=== PATIENT | female | born 1990 | race Caucasian/White ===

== ENCOUNTER 2016-06-29 19:50 | Emergency (ER) | payer MEDICAID ==
[~2016-06-29] VITALS: Ht 170.2 cm; Wt 87.8 kg
[~2016-06-29 19:50] MED LIST: ALBU8.5H3 INH; ESCI20TA30 PO; PROP10TA10 PO
--- OUTSIDE RECORDS SUMMARY | 2016-06-29 19:54 | XMS REPORT ---
Author Author Cece Jaylan [facility] Address [address], [place] [address] Care Team Providers Care Die Barber Name Role Phone Jaylan Zhao Unavailable [phone] PROBLEMS Type Condition ICD9-CM Code SHX17-EG Code Onset Dates Condition Status SNOMED Code Problem Esophageal reflux 530.81 Active 090809781 Problem Peptic ulcer, unspecified site, unspecified as acute or chronic, without mention of hemorrhage, perforation, or obstruction 533.90 Active 20536797 Problem Obesity, unspecified 278.00 Active 652137897 Assessment Encounter for dental examination and cleaning without abnormal findings Z01.20 Feb, Active 757810518 Problem Migraine headaches 346.90 Active 70039686 Problem Adjustment disorder with anxiety 309.24 Active 39204166 Problem Eczema 691.8 Active 50768388 Problem Mild intermittent asthma without complication J45.20 Active 862847834 Problem Adjustment disorder with anxiety F43.22 Active 19273042 Problem Bipolar 1 disorder, depressed, mild F31.31 Active 84997602 Problem Allergic rhinitis 477.9 Active 91545320 Problem Generalized anxiety disorder F41.1 Active 88230964 Problem Bipolar disorder, current episode depressed, moderate F31.32 Active 984602622 ALLERGIES Unknown Allergies SOCIAL HISTORY No smoking Hx information available PLAN OF CARE VITAL SIGNS MEDICATIONS Medication Instructions Dosage Frequency Start Date End Date Duration Status Zyrtec Allergy 10 MG Orally Once a day 1 tablet 24h Active Benadryl Allergy 25 MG Orally every 6 hrs 1 tablet as needed 6h Active Methocarbamol 750 MG Orally every 4 hrs 1 tablet 4h Active Propranolol HCl 10 MG Orally up to twice a day as needed for Anxiety 0.5 to 1 tablet 30 days Active Budesonide 0.5 MG/2ML Inhalation 3 Times a day 1 ml 8h 10 Jan, 2016 3 days Active Albuterol Sulfate HFA 108 (90 Base) MCG/ACT Inhalation every 4 hrs 2 puffs as needed 4h 30 days Active Afrin Allergy Active Hydrocodone-Acetaminophen 5-325 MG Orally every 4-6 hours p.r.n. 1 tablet as needed Feb, 4 days Active Amoxicillin 500 MG Orally every 8 hrs for 1 capsule 6 day(s) Active Lamictal 150 MG Orally Once a day 2 tablet at bedtime 24h 30 days Active Lexapro 20 MG Orally Once a day 1 tablet 24h Mar, 30 days Active RESULTS No Results PROCEDURES Procedure Date Ordered Related Diagnosis Body Site LTD ORAL EVALUATION - PROBLEM FOCUS Mar 04, 2016 INTRAORL-PERIAPICAL 1 FILM 59964 Mar 04, 2016 RODRIGO KIM DENTAL PAIN-MINOR PROC Mar 04, 2016 IMMUNIZATIONS No Known Immunizations
--- OUTSIDE RECORDS SUMMARY | 2016-06-29 19:55 | XMS REPORT | Continuity of Care Document ---
Author Author [facility] Organization [facility] Address Unknown Phone Unavailable Support Name Relationship Address Phone CHRISTI LOPEZ MD Caregiver [address] [place] [address] Unavailable ESEQUIEL BRISENO DO Caregiver [address] [place] [address] Unavailable AIDACLEOPATRA WYATTA Next Of Kin [address] [place], [place] [id number] Insurance Providers Guarantor Michelle Hayes Address [address] [place] [address] Email [email or web address] Payer [facility] Plan Policy Number [id number] Subscriber's Name Michelle Hayes Relationship 18 Self Effective Date 16 Expiration Date 16 Advance Directives Directive Response Recorded Date/Time Advanced Directives Type None 05/02/16 5:30pm Chief Complaint and Reason for Visit Chief Complaint GI Bleed Reason for Visit [id number] Problems Active Problems Medical Problem Onset Date Status Abdominal pain Unknown Acute Abdominal pain Unknown Acute Acute bronchitis Unknown Acute Contusion of back Unknown Acute GERD (gastroesophageal reflux disease) Unknown Acute Gastroenteritis Unknown Acute Lumbar strain Unknown Acute Pain, dental Unknown Acute Past Problems Medical Problem Onset Date Constipation Unknown Left sided abdominal pain of unknown cause Unknown Lumbar back pain Unknown Lumbar contusion Unknown Rectal bleeding Unknown Yeast infection Unknown Medications Current Home Medications Medication Dose Units Route Directions Days Qty Instructions Start Date Albuterol Sulfate (Albuterol Sulfate Hfa) 8.5 Gm Hfa.aer.ad 1 Puff Inhalation As Needed 06/04/12 Escitalopram Oxalate 20 Mg Tablet 20 Mg Oral Bedtime 05/02/16 Propranolol Hcl 10 Mg Tablet 10 Mg Oral Bedtime 05/02/16 Past Home Medications Medication Directions Ordered Status Cefprozil (Cefzil) 250 Mg Tablet, 250 Mg Oral Twice A Day 03/23/08 Discontinued Social History Social History Problem Response Recorded Date/Time Onset Date Status Chewing Tobacco Status No 08/12/2013 12:34am Not Applicable Not Applicable Hx Substance Use No 05/02/2016 5:40pm Not Applicable Not Applicable Hx Alcohol Use Y OCCASIONAL 05/02/2016 5:40pm Not Applicable Not Applicable Has the pt used tobacco in the last 12 months No 04/20/2014 6:15am Not Applicable Not Applicable Tobacco Usage smoke 08/18/2013 11:06am Not Applicable Not Applicable Query Response Start Date Stop Date Smoking Status Unknown if ever smoked Hospital Discharge Instructions No hospital discharge instructions. Plan of Care Discharge Date 05/02/16 7:07pm Disposition 01 DISCHARGED HOME, SELF-CARE Condition at Discharge Stable Instructions/Education Provided Rectal Bleeding (ED) Prescriptions See Medication Section Referrals ESEQUIEL BRISENO DO Address: [address] [place] [address] [place] [phone] Additional Instructions/Education I do want you to monitor your symptoms. If you should have any increased bleeding in amount or frequency then return to ER. Otherwise follow up next week with Dr Briseno. If the bleeding persists you may need a colonoscopy to determine the source of the bleeding. Care Plan and Goals Physician Care Plan Problem:Rectal Bleeding Goal: Follow up with primary care provider Instructions: Take medications and follow care plan as discussed/written Functional Status No functional status results. Allergies, Adverse Reactions, Alerts Allergen Type Severity Reaction Status Last Updated Penicillin Allergy Unknown NUMBNESS Active 03/16/16 Immunizations Query Response on File Recorded Date/Time Hx Influenza Vaccination No 04/19/14 11:32am Hx Pneumococcal Vaccination No 04/19/14 11:32am Hx Influenza Vaccination No 04/19/14 11:32am Hx Tetanus Diptheria Y 200602/19/14 1:25am Influenza Vaccine Hx NONE 05/02/16 5:40pm Vital Signs Acute Vital Signs Vital Response Date/Time Temperature (Fahrenheit) 98.5 deg F (96.8 - 99.1) 05/02/2016 7:07pm Temperature (Calculated Celsius) 36.15073 degrees C (36.0 - 37.3) 05/02/2016 7:07pm Pulse Rate (adult) 85 bpm (60 - 100) 05/02/2016 7:07pm Respiratory Rate 14 breaths/min (10 - 20) 05/02/2016 7:07pm O2 Sat by Pulse Oximetry 98 % (90 - 100) 05/02/2016 7:07pm Blood Pressure 105/70 mm Hg 05/02/2016 7:07pm Height (Feet) 5 feet 05/02/2016 5:35pm Height (Inches) 7.00 inches 05/02/2016 5:35pm Weight (Kilograms) 90.300 kg 05/02/2016 5:35pm Body Mass Index (BMI) 31.0 05/02/2016 5:35pm Results Laboratory Results Test Name Result Units Flags Reference Collection Date/Time Result Date/ Time Comments Total Bilirubin 0.30 MG/DL 0.20-1.30 03/16/2016 9:15pm 03/16/2016 9: 30pm Alkaline Phosphatase 73 U/L 38-126 03/16/2016 9:15pm 03/16/2016 9:30pm Total Protein 7.3 G/DL 6.3-8.2 03/16/2016 9:15pm 03/16/2016 9:30pm Albumin 4.0 G/DL 3.5-5.0 03/16/2016 9:15pm 03/16/2016 9:30pm Globulin 3.3 G/DL 2.4-3.6 03/16/2016 9:15pm 03/16/2016 9:30pm Albumin/Globulin Ratio 1.2 RATIO 1.1-2.2 03/16/2016 9:15pm 03/16/2016 9 :30pm Aspartate Amino Transf (AST/SGOT) 23 U/L 14-36 03/16/2016 9:15pm 2015 9:30pm Alanine Aminotransferase (ALT/SGPT) 27 U/L 9-52 03/16/2016 9:15pm 03/16 9:30pm Urine Collection Type STRAIGHT CATH 03/16/2016 9:42pm 03/16/2016 9: 46pm Urine Color YELLOW YELLOW 03/16/2016 9:42pm 03/16/2016 9:46pm Urine Turbidity CLEAR CLEAR 03/16/2016 9:42pm 03/16/2016 9:46pm Urine Specific [place] 1.010 L 1.015-1.025 03/16/2016 9:42pm 2015 9:46pm Urine pH 6.0 5.0-8.0 03/16/2016 9:42pm 03/16/2016 9:46pm Urine Leukocyte Esterase NEGATIVE NEGATIVE 03/16/2016 9:42pm 2015 9:46pm Urine Nitrite NEGATIVE NEGATIVE 03/16/2016 9:42pm 03/16/2016 9:46pm Urine Protein NEGATIVE NEGATIVE 03/16/2016 9:42pm 03/16/2016 9:46pm Urine Glucose (UA) NEGATIVE NEGATIVE 03/16/2016 9:42pm 03/16/2016 9: 46pm Urine Ketones NEGATIVE NEGATIVE 03/16/2016 9:42pm 03/16/2016 9:46pm Urine Urobilinogen 0.2 EU/DL NORMAL 03/16/2016 9:42pm 03/16/2016 9: 46pm Urine Bilirubin NEGATIVE NEGATIVE 03/16/2016 9:42pm 03/16/2016 9: 46pm Urine Blood NEGATIVE NEGATIVE 03/16/2016 9:42pm 03/16/2016 9:46pm Urinalysis Comment MICROSCOPIC NOT IND. 03/16/2016 9:42pm 2015 9:46pm White Blood Count 11.1 T/MM3 H 4.5-11.0 05/02/2016 6:10pm 05/02/2016 6: 19pm Red Blood Count 3.80 M/MM3 L 4.00-5.20 05/02/2016 6:10pm 05/02/2016 6: 19pm Hemoglobin 10.6 GM/DL L 12-16 05/02/2016 6:10pm 05/02/2016 6:19pm Hematocrit 33.6 % L 36-46 05/02/2016 6:10pm 05/02/2016 6:19pm Mean Corpuscular Volume 88.4 UM3 80-100 05/02/2016 6:1005/02/2016 6: 19pm Mean Corpuscular Hemoglobin 27.9 UUG 26-34 05/02/2016 6:102016 6:19pm Mean Corpuscular Hemoglobin Concent 31.5 GM/DL 31-37 05/02/2016 6:1005/02/2016 6:19pm RDW Standard Deviation 49.7 FL 36.9-50.2 05/02/2016 6:10pm 05/02/2016 6 :19pm Platelet Count 269 T/MM3 130-400 05/02/2016 6:10pm 05/02/2016 6:19pm Mean Platelet Volume 11.3 UM3 9.4-12.4 05/02/2016 6:1005/02/2016 6: 19pm Neutrophils (%) (Auto) 55.7 % 33-66 05/02/2016 6:1005/02/2016 6: 19pm Lymphocytes (%) (Auto) 35.7 % 23-45 05/02/2016 6:1005/02/2016 6: 19pm Monocytes (%) (Auto) 5.6 % 0-9.0 05/02/2016 6:1005/02/2016 6:19pm Eosinophils (%) (Auto) 2.4 % 0-4 05/02/2016 6:1005/02/2016 6:19pm Basophils (%) (Auto) 0.3 % 0-2 05/02/2016 6:1005/02/2016 6:19pm Immature Granulocyte % (Auto) 0.3 % 0.0-0.5 05/02/2016 6:10pm 2016 6:19pm Absolute Neutrophils (auto) 6.2 T/MM3 1.8-7.7 05/02/2016 6:102016 6:19pm Absolute Lymphocytes (auto) 4.0 T/MM3 1-4.8 05/02/2016 6:10pm 2016 6:19pm Absolute Monocytes (auto) 0.6 T/MM3 0-0.8 05/02/2016 6:10pm 05/02/2016 6:19pm Absolute Eosinophils (auto) 0.3 T/MM3 0-0.5 05/02/2016 6:102016 6:19pm Absolute Basophils (auto) 0.0 T/MM3 0-0.2 05/02/2016 6:1005/02/2016 6:19pm Absolute Immature Granulocyte (auto 0.03 T/MM3 0.00-0.03 05/02/2016 6: 1005/02/2016 6:19pm Icterus Index < 2 0-7 05/02/2016 6:05/02/2016 6:28pm Chemistry Specimen Hemolysis < 15 0-25 05/02/2016 6:1005/02/2016 6 :28pm 0-25: Specimen Exhibited No Hemolysis. Turbidity < 20 0-20 05/02/2016 6:1005/02/2016 6:28pm Sodium Level 140 MEQ/L 134-144 05/02/2016 6:10pm 05/02/2016 6:28pm Potassium Level 4.0 MEQ/L 3.6-5 05/02/2016 6:10pm 05/02/2016 6:28pm Chloride Level 106 MEQ/L 98-107 05/02/2016 6:10pm 05/02/2016 6:28pm Carbon Dioxide Level 25 MEQ/L 22-30 05/02/2016 6:10pm 05/02/2016 6: 28pm Anion Gap 9 MEQ/L 5-15 05/02/2016 6:10pm 05/02/2016 6:28pm Blood Urea Nitrogen 9.0 MG/DL 7-17 05/02/2016 6:10pm 05/02/2016 6:28pm Creatinine 0.7 MG/DL 0.7-1.2 05/02/2016 6:10pm 05/02/2016 6:28pm BUN/Creatinine Ratio 13 RATIO 6-05/02/2016 6:10pm 05/02/2016 6:28pm Glomerular Filtration Rate Calc 101 05/02/2016 6:10pm 05/02/2016 6: 28pm Glucose Level 88 MG/DL 65-110 05/02/2016 6:10pm 05/02/2016 6:28pm Calculated Osmolality 267 MOSM/KG 261-280 05/02/2016 6:10pm 05/02/2016 6:28pm Calcium Level 9.8 MG/DL 8.4-10.2 05/02/2016 6:10pm 05/02/2016 6:28pm Procedures Procedure Status Date Provider(s) Routine venipuncture Completed 03/16/16 Comprehen metabolic panel Completed 03/16/16 Urinalysis auto w/o scope Completed 03/16/16 Complete cbc w/auto diff wbc Completed 03/16/16 Ther/proph/diag inj sc/im Completed 03/16/16 Emergency dept visit Completed 03/16/16 232541"INJECTION, KETOROLAC TROMETHAMINE, PER 15 MG" Completed 03/16/16 Encounters Encounter Location Arrival/Admit Date Discharge/Depart Date Attending Provider Departed Emergency Room [facility] 05/02/16 5:29pm 05/02/16 7: 07pm CHRISTI LOPEZ MD Departed Emergency Room [facility] 03/16/16 7:58pm 03/16/16 11: 29pm MEJIA GAY MD Recent Diagnosis
--- OUTSIDE RECORDS SUMMARY | 2016-06-29 19:56 | XMS REPORT | Referral Summary ---
Author Author [facility], [facility] Organization [facility] Address Unknown Phone Unavailable Care Team Providers Care Code Enforcement Inspector Name Role Phone Edwin Holman Primary Care Physician [phone] Encounter VC Date(s): 04/22/16 - 04/22/16 [facility], [address] [place] [address]- Discharge Diagnosis: Nasopharyngitis Discharge Disposition: 01-Home or Self Care Attending Physician: Edwin Holman DO Admitting Physician: Edwin Holman DO Vital Signs Most recent to 1 oldest [Reference Range]: Temperature Tympanic 37.0 degC [36.6-38.1 degC] (04/22/16 9:20 AM) Peripheral Pulse 86 bpm Rate [60-100 bpm] (04/22/16 9:20 AM) Respiratory Rate 18 br/min [14-20 br/min] (04/22/16 9:20 AM) Blood Pressure 100/72 mmHg [90-140/60-90 mmHg] (04/22/16 9:20 AM) SpO2 98 % (04/22/16 9:20 AM) Problem List Condition Effective Dates Status Health Status Informant Allergic Active rhinitis(Confirmed) Hay fever(Confirmed) Active Anemia(Confirmed) Active Asthma(Confirmed) Active Obesity(Confirmed) Active patient Allergies, Adverse Reactions, Alerts Substance Reaction Severity Status penicillin excruciating pain Active Medications albuterol CFC free 90 mcg/inh inhalation aerosol 1 puffs, Inhalation, QID, as needed for wheezing, # 1 Each, 0 Refill(s), Pharmacy: [facility] #[id number] Start Date: 07/09/15 Status: Ordered indomethacin 50 mg oral capsule 50 mg 1 caps, Oral, BID, as needed for pain, # 60 caps, 0 Refill(s), Pharmacy: [facility] #[id number], 1 caps Oral BID,x30 days,PRN:as needed for pain Start Date: 09/04/15 Stop Date: 10/04/15 Status: Ordered lamoTRIgine 25 mg oral tablet 25 mg 1 tabs, Oral, BID, # 60 tabs, 0 Refill(s) Start Date: 07/09/15 Status: Ordered Lyrica 100 mg oral capsule 100 mg 1 caps, Oral, BID, # 60 caps, 0 Refill(s) Start Date: 09/26/15 Stop Date: 10/26/15 Status: Ordered prochlorperazine 10 mg oral tablet 10 mg 1 tabs, Oral, QID, as needed for nausea/vomiting, 0 Refill(s) Start Date: 03/18/16 Status: Ordered propranolol 10 mg oral tablet 10 mg 1 tabs, Oral, Daily, # 180 tabs, 0 Refill(s) Start Date: 07/09/15 Status: Ordered Reglan 10 mg oral tablet 10 mg 1 tabs, Oral, q6hr, as needed for nausea/vomiting, 0 Refill(s) Start Date: 12/25/15 Status: Ordered Robaxin-750 oral tablet 750 mg 1 tabs, Oral, QID, as needed for pain, # 30 tabs, 0 Refill(s) Start Date: 12/12/15 Status: Ordered traMADol 50 mg oral tablet 1-2 tabs, Oral, q6hr, as needed for pain, 0 Refill(s) Start Date: 03/18/16 Status: Ordered Results No data available for this section Immunizations No data available for this section Procedures Procedure Date Related Diagnosis Body Site delivery Cholecystectomy Hernia repair Removal of wart1 Tubal ligation 1genital Social History Social History Type Response Smoking Status Current every day smoker; Type: Cigarettes; Tobacco use per day: Less than Pack Assessment and Plan Extracted from: Title: Office Visit Note Author: Edwin Holman DO Date: 04/22/16 Assessment/Plan 1.Nasopharyngitis 1. History and clinical presentation consistent with viral upper respiratory tract infection. 2. Continue with conservative and supportive measures. 3. Adequate hydration recommended. 4. Ibuprofen or Tylenol every 8 hours as needed for the sore throat and coughing. 5. Follow-up if worsening presentation 6. Recommended getting the flu vaccination. Ordered: Office Visit Level 3 Est [id number]
--- OUTSIDE RECORDS SUMMARY | 2016-06-29 19:57 | XMS REPORT | Continuity of Care Document ---
Author Author [facility] Organization [facility] Address Unknown Phone Unavailable Support Name Relationship Address Phone JUDY FERGUSON MD Caregiver [address] [place] [id number] MANSOOR MYERS APRN Caregiver [facility] Unknown [phone] MIKA JACKSON MD Caregiver [facility] [address] , KAREN Mayo [place], [place] [phone] DANIAL HAYES Next Of Kin [address] [place], [place] [id number] Insurance Providers Payer Name Policy Number Subscriber Name Relationship [facility] Preferred [id number] Danial Hayes 01 Spouse Advance Directives Directive Response Recorded Date/Time Ordered Resuscitation Status Full Code 04/19/14 11:59am Resuscitation Documents on File No 04/19/14 11:45am Problems Medical Problems Problem Onset Date Status Abdominal pain Unknown Active Abdominal pain Unknown Active Pain, dental Unknown Active Medications Medication Dose Route Sig Days/Qty Instructions Order Date Discontinued Date Status Cefprozil 250 Mg PO TWICE A DAY 03/23/08 01/07/09 Discontinued Albuterol Sulfate 1 INH NEEDED 06/04/12 Active Pantoprazole Sodium 1 Tab PO DAILY 04/19/14 Active Oxycodone HCl/Acetaminophen 1-2 Tab PO EVERY 4-6 HOURS PRN PAIN 35 Qty 04/20/14 Active Social History Social History Problem Response Recorded Date/Time Chewing Tobacco Status No 08/12/2013 12:34am Hx Substance Use No 04/19/2014 11:32am Hx Alcohol Use No 04/19/2014 11:32am Has the pt used tobacco in the last 12 months No 04/20/2014 6:15am Tobacco Usage smoke 08/18/2013 11:06am Query Response Start Date Stop Date Smoking Status Unknown if ever smoked Hospital Discharge Instructions No hospital discharge instructions. Plan of Care No plan of care. Functional Status Query Response Date Recorded Physical Hygiene Self February 19, 2014 1:25am Physical Hygiene Self February 19, 2014 1:25am Allergies, Adverse Reactions, Alerts Allergen Type Severity Reaction Status Last Updated Penicillin Allergy Unknown NUMBNESS Active 02/19/14 Hydrocodone Adverse Reaction Intermediate URINARY RETENTION Active Immunizations Name Given Type Hx Influenza Vaccination No Historical Hx Pneumococcal Vaccination No Historical Hx Influenza Vaccination No Historical Hx Tetanus Diptheria Y 2007 Historical Vital Signs Acute Vital Signs Vital Response Date/Time Temperature (Fahrenheit) 96.6 deg F (96.8 - 99.1) Temperature (Calculated Celsius) 35.22296 degrees C (36.0 - 37.3) Temperature Source Oral Pulse Rate (adult) 61 bpm (60 - 100) Respiratory Rate 18 breaths/min (10 - 20) O2 Sat by Pulse Oximetry 98 % (90 - 100) Oxygen Delivery Method Room Air Blood Pressure 99/64 mm Hg Blood Pressure Source Automatic Cuff Height 5 ft 6 in Weight 211 lb Body Mass Index 34.0 kg/m^2 Results Test Source Date Result Interp. Ref. Range Comments Alanine Aminotransferase (ALT/SGPT) August 12, 2013 1:05am 23 U/L N 9-52 Albumin August 12, 2013 1:05am 4.1 G/DL N 3.5-5.0 Albumin/Globulin Ratio August 12, 2013 1:05am 1.2 RATIO N 1.1-2.2 Alkaline Phosphatase August 12, 2013 1:05am 103 U/L N 38-126 Anion Gap August 12, 2013 1:05am 10 MEQ/L N 5-15 Aspartate Amino Transf (AST/SGOT) August 12, 2013 1:05am 17 U/L N 14-36 BUN/Creatinine Ratio August 12, 2013 1:05am 17 RATIO N 6-26 Basophils # (Auto) April 20, 2014 6:11am 0.0 T/MM3 N 0-0.2 Basophils (%) (Auto) April 20, 2014 6:11am 0.3 % N 0-2 Blood Urea Nitrogen August 12, 2013 1:05am 10.0 MG/DL N 7-17 Calcium Level August 12, 2013 1:05am 9.1 MG/DL N 8.4-10.2 Calculated Osmolality August 12, 2013 1:05am 268 MOSM/KG N 261-280 Carbon Dioxide Level August 12, 2013 1:05am 26 MEQ/L N 22-30 Chemistry Specimen Hemolysis August 12, 2013 1:05am < 15 0-25 0-25: No Hemolysis.26-70: Slight Hemolysis - can falsely elevate K and Urine Protein. 71-285: Moderate Hemolysis - can falsely elevate K, Troponin I, CA 19-9, PTH, CSF GLucose, and Urine Protein, and can falsely decrease Phenytoin. 286-999: Gross Hemolysis - can falsely elevate K, Troponin I, CA 19-9, PTH, CSF Glucose, and Urine Protine, and can falsely decrease Phenytoin. Recommend specimen recollection. Chloride Level August 12, 2013 1:05am 104 MEQ/L N 98-107 Creatinine August 12, 2013 1:05am 0.6 MG/DL L 0.7-1.2 Eosinophils # (Auto) April 20, 2014 6:11am 0.1 T/MM3 N 0-0.5 Eosinophils (%) (Auto) April 20, 2014 6:11am 1.0 % N 0-4 Globulin August 12, 2013 1:05am 3.5 G/DL N 2.4-3.6 Glomerular Filtration Rate Calc August 12, 2013 1:05am 124 - Glucose Level August 12, 2013 1:05am 90 MG/DL N 65-110 Hematocrit April 20, 2014 6:11am 37.2 % N 36-46 Hemoglobin April 20, 2014 6:11am 12.1 GM/DL N 12-16 Icterus Index August 12, 2013 1:05am < 2 0-7 Immature Granulocyte # (Auto) April 20, 2014 6:11am 0.00 T/MM3 N 0.00- 0.03 Immature Granulocyte % (Auto) April 20, 2014 6:11am 0.0 % N 0.0-0.5 Influenza Type A Antigen January 07, 2009 3:32pm Negative - Influenza Type B Antigen January 07, 2009 3:32pm Negative - Lab Scanned Report January 09, 2012 9:00pm LAB TEST FORM REQUEST [id number] - Lymphocytes # (Auto) April 20, 2014 6:11am 3.0 T/MM3 N 1-4.8 Lymphocytes (%) (Auto) April 20, 2014 6:11am 42.0 % N 23-45 Mean Corpuscular Hemoglobin April 20, 2014 6:11am 28.5 UUG N 26-34 Mean Corpuscular Hemoglobin Concent April 20, 2014 6:11am 32.5 GM/DL N 31-37 Mean Corpuscular Volume April 20, 2014 6:11am 87.7 UM3 N 80-100 Mean Platelet Volume April 20, 2014 6:11am 11.6 UM3 N 9.4-12.4 Monocytes # (Auto) April 20, 2014 6:11am 0.5 T/MM3 N 0-0.8 Monocytes (%) (Auto) April 20, 2014 6:11am 7.0 % N 0-9.0 Monoscreen March 23, 2008 8:05am Negative - Neutrophils # (Auto) April 20, 2014 6:11am 3.5 T/MM3 N 1.8-7.7 Neutrophils (%) (Auto) April 20, 2014 6:11am 49.7 % N 33-66 Platelet Count April 20, 2014 6:11am 190 T/MM3 N 130-400 Potassium Level August 12, 2013 1:05am 3.5 MEQ/L L 3.6-5 RDW Standard Deviation April 20, 2014 6:11am 44.3 FL N 36.9-50.2 Red Blood Count April 20, 2014 6:11am 4.24 M/MM3 N 4.00-5.20 Sodium Level August 12, 2013 1:05am 140 MEQ/L N 134-144 Total Bilirubin August 12, 2013 1:05am 0.70 MG/DL N 0.20-1.30 Total Protein August 12, 2013 1:05am 7.6 G/DL N 6.3-8.2 Turbidity August 12, 2013 1:05am < 20 0-20 Urinalysis Comment June 04, 2012 2:20pm Microscopic not ind. - Has specimen been collected/obtained? Y Urine Amorphous Urates December 27, 2007 11:47am Moderate - Urine Bacteria August 12, 2013 1:15am Trace H - Has specimen been collected/obtained? Y Urine Bilirubin August 12, 2013 1:15am Negative - Has specimen been collected/obtained? Y Urine Blood August 12, 2013 1:15am 3+ H - Has specimen been collected/ obtained? Y Urine Collection Type August 12, 2013 1:15am Cleancatch-midstream - Has specimen been collected/obtained? Y Urine Color August 12, 2013 1:15am Dk yellow - Has specimen been collected/obtained? Y Urine Culture Indicated June 04, 2012 2:20pm Cult reflexed &setup - Has specimen been collected/obtained? Y Urine Glucose (UA) August 12, 2013 1:15am Negative - Has specimen been collected/obtained? Y Urine Ketones August 12, 2013 1:15am Negative - Has specimen been collected/obtained? Y Urine Leukocyte Esterase August 12, 2013 1:15am Negative - Has specimen been collected/obtained? Y Urine Mucus December 27, 2007 11:47am Present - Urine Nitrite August 12, 2013 1:15am Negative - Has specimen been collected/obtained? Y Urine Test December 17, 2012 6:40am Negative - Has specimen been collected/obtained? Y Urine Protein August 12, 2013 1:15am Trace H - Has specimen been collected /obtained? Y Urine RBC August 12, 2013 1:15am Tntc /HPF H - Has specimen been collected /obtained? Y Urine Specific [place] August 12, 2013 1:15am >=1.030 H - Has specimen been collected/obtained? Y Urine Squamous Epithelial Cells June 04, 2012 2:20pm Few - Has specimen been collected/obtained? Y Urine Turbidity August 12, 2013 1:15am Moderate - Has specimen been collected/obtained? Y Urine Urobilinogen August 12, 2013 1:15am 0.2 EU/DL - Has specimen been collected/obtained? Y Urine WBC August 12, 2013 1:15am 3-5 /HPF - Has specimen been collected/ obtained? Y Urine WBC Clumps January 09, 2012 10:40am Not Performed - Urine Yeast January 10, 2008 9:44am 2+ - Urine pH August 12, 2013 1:15am 6.0 - Has specimen been collected/ obtained? Y White Blood Count April 20, 2014 6:11am 7.0 T/MM3 N 4.5-11.0 Wet Prep Vagina December 30, 2011 12:00pm Urine Culture Urine, Clean Catch Voided June 04, 2012 2:42pm Gram Positive Dayo Procedures Procedure Status Date Provider(s) THER/PROPH/DIAG INJ SC/IM completed 02/19/14 EMERGENCY DEPT VISIT completed 02/19/14 [id number]"INJECTION, HYDROMORPHONE, UP TO 4 MG" completed 02/19/14 Robot-assisted repair of ventral hernia completed 04/20/14 MIKA JACKSON MD Encounters Encounter Location Date/Time Departed Emergency Room [facility] 02/19/14 1:10am
--- OUTSIDE RECORDS SUMMARY | 2016-06-29 19:58 | XMS REPORT | Continuity of Care Document ---
Author Author [facility] Organization [facility] Address Unknown Phone Unavailable Allergies Active Description Code Type Severity Reaction Onset Reported/Identified Relationship to Patient Clinical Status Yes Penicillins Penicillins Drug Allergy Mild headache, stabbing pains, rash 11/10/2010 Yes No Allergy Information Drug Allergy N/A N/A 05/21/2013 Yes Penicillins Drug Allergy N/A excruciating pain 05/21/2013 Yes cephalexin cephalexin Drug Allergy Unknown ITCHING 12/25/2014 Medications Problems Date Dx Coded Attending Type Code Diagnosis Diagnosed By 09/21/2012 Bryan Mcmahan MD 493.90 ASTHMA, UNSPECIFIED 09/21/2012 Bryan Mcmahan MD 645.11 POST TERM PREG, DELIV W/WO MENTION OF ANTEPARTUM C 09/21/2012 Bryan Mcmahan MD 648.91 OTH CURR COND-DELIVERED 09/21/2012 Bryan Mcmahan MD 655.71 DECR MOVEMNT DEL W/W/O MENTION OF ANTEPARTUM 09/21/2012 Bryan Mcmahan MD 659.11 FAIL INDUCTION NOS-DELIV 09/21/2012 Bryan Mcmahan MD 674.32 OB SURG COMPL-DEL W P/P 09/21/2012 Bryan Mcmahan MD E849.7 ACCID IN RESIDENT INSTIT 09/21/2012 Bryan Mcmahan MD E878.8 ABN REACT-SURG PROC NEC 09/21/2012 Bryan Mcmahan MD V22.0 SUPERVIS NORMAL 1ST PREG 09/21/2012 Bryan Mcmahan MD V22.1 SUPERVIS OTH NORMAL PREG 09/21/2012 Bryan Mcmahan MD V27.0 DELIVER-SINGLE LIVEBORN 05/21/2013 Familia Bojorquez MD Final 278.00 OBESITY NOS 05/21/2013 Familia Bojorquez MD Final 478.19 NASAL SINUS DIS NEC 05/21/2013 Familia Bojorquez MD Final 493.90 ASTHMA NOS 05/21/2013 [place] ACEVEDO, Familia Solomon Final 553.9 HERNIA NOS 05/21/2013 [place] ACEVEDO, Familia Solomon Final 785.6 ENLARGEMENT LYMPH NODES 05/21/2013 Familia Bojorquez MD Final 789.03 RLQ ABDOMINAL PAIN 05/21/2013 [place] ACEVEDO, Familia Solomon Final 793.11 SOLITARY PULMON NODULE 05/21/2013 Familia Bojorquez MD Final 850.11 CONCUSSION W LOC <31 MIN 05/21/2013 [place] ACEVEDO, Familia Solomon 959.01 HEAD INJURY NOS 05/21/2013 Familia Bojorquez MD External E816.0 LOSS CONTROL MV-BEHAVIORAL SCIENCE CHAIR 05/21/2013 Familia Bojorquez MD External E849.[address]/HIGHWAY 05/21/2013 Familia Bojorquez MD Final V85.33 BMI 33.0-33.9 ADULT 12/25/2014 Bryan Mcmahan MD A Z34.83 ENCOUNTER FOR SUPRVSN OF NORMAL , THIRD TRIMESTER Procedures Code Description Performed By Performed On 73.1 SURG INDUCT LABOR NEC Bryan Mcmahan MD 09/21/2012 74.1 LOW CERVICAL Bryan Mcmahan MD 09/21/2012 [id number] OCCLUSION OF BILATERAL FALLOPIAN TUBES, OPEN APPRO Bryan Mcmahan MD 12/25/2014 [id number] EXTRACTION OF POC, LOW CERVICAL, OPEN APPROACH Bryan Mcmahan MD 12/25/2014 Results Test Result Range CBC - 09/21/12 06:05 MEAN CELL HGB 31.7 pg 27.0-33.0 MEAN CELL HGB CONCENTRATION 32.2 g/dL 32.0-37.0 MEAN CELL VOLUME 98.3 fl 80.0-100.0 RED BLOOD CELL 3.63 m/cumm 4.00-6.00 RED CELL DISTRIBUTION WIDTH 14.5 % 11.0- 15.6 WHITE BLOOD CELL 12.4 k/cumm 5.0-10.0 HEMOGLOBIN 11.5 gm/dL 12.0-16.0 HEMATOCRIT 35.7 % 37.0-47.0 PLATELET COUNT 198 k/cumm 150-400 CORD ARTERIAL BLOOD GAS - 09/21/12 10:10 ARTERIAL CORD BLD BASE EXCESS -1.9 meq/L -7.6-1.3 COMMENT ARTERIAL ARTERIAL CORD BICARBONATE 27.4 meq/L 16.0 -27.1 ARTERIAL CORD BLOOD PCO2 67 mm Hg 32-69 ARTERIAL CORD BLOOD PH 7.23 7.14-7.40 ARTERIAL CORD BLOOD PO2 12.9 mm Hg 8-33 ARTERIAL CORD BLOOD O2 SAT < 15 % 5-59 CORD VENOUS BLOOD GAS - 09/21/12 10:10 VENOUS CORD BLOOD BASE EXCESS -4.2 meq/L -5.8-0.7 COMMENT VENOUS VENOUS CORD BLOOD HCO3 21.1 meq/L 17.4- 25.4 VENOUS CORD BLOOD PCO2 40 mm Hg 28-57 VENOUS CORD BLOOD PH 7.35 7.23-7.46 VENOUS CORD BLOOD PO2 39 mm Hg 15-42 VENOUS CORD BLOOD O2 SAT 79 % 14-75 HEMOGLOBIN - 09/21/12 14:44 MEAN CELL VOLUME 98.0 fl 80.0-100.0 HEMOGLOBIN 10.9 gm/dL 12.0-16.0 HEMOGLOBIN - 09/22/12 08:03 MEAN CELL VOLUME 98.5 fl 80.0-100.0 HEMOGLOBIN 10.3 gm/dL 12.0-16.0 METABOLIC PANEL, BASIC - 09/22/12 08:03 POTASSIUM 3.7 mmol/L 3.5-5.3 EST GFR (MDRD) > 60 mL/min > 59 ANION GAP 10 mmol/L 5-15 EST CrCl (CG) > 60 mL/min > 59 GLUCOSE 71 mg/dL 70-99 CALCIUM 8.6 mg/dL 8.5-10.1 BLOOD UREA NITROGEN 3 mg/dL 7-20 CREATININE 0.6 mg/dL 0.6-1.0 SODIUM 141 mmol/L 135-148 CHLORIDE 108 mmol/L 98-110 CARBON DIOXIDE 23 mmol/L 21-32 CBC W/DIFF - 12/09/14 17:58 EOSINOPHIL # 0.1 k/cumm 0.1-0.5 EOSINOPHIL % 1 % 2-4 GRANULOCYTE # 7.9 k/cumm 2.0-9.0 GRANULOCYTE % 65 % 50-75 LYMPHOCYTE # 3.2 k/cumm 1.0-4.0 LYMPHOCYTE % 27 % 20-30 MEAN CELL HGB 31.2 pg 27.0-33.0 MEAN CELL HGB CONCENTRATION 33.5 g/dL 32.0-37.0 MEAN CELL VOLUME 93.1 fl 80.0-100.0 MONOCYTE # 0.9 k/cumm 0.1-1.0 MONOCYTE % 7 % 4-6 RED BLOOD CELL 3.62 m/cumm 4.00-6.00 RED CELL DISTRIBUTION WIDTH 14.7 % 11.0- 15.6 WHITE BLOOD CELL 12.2 k/cumm 5.0-10.0 HEMOGLOBIN 11.3 gm/dL 12.0-16.0 HEMATOCRIT 33.7 % 37.0-47.0 PLATELET COUNT 222 k/cumm 150-400 Microbiology METABOLIC PANEL, BASIC - 12/09/14 17:58 POTASSIUM 3.4 mmol/L 3.5-5.3 EST GFR (MDRD) > 60 mL/min > 59 ANION GAP 12 mmol/L 5-15 EST CrCl (CG) > 60 mL/min > 59 GLUCOSE 68 mg/dL 70-99 CALCIUM 8.7 mg/dL 8.5-10.1 BLOOD UREA NITROGEN 4 mg/dL 7-20 CREATININE 0.5 mg/dL 0.6-1.0 SODIUM 140 mmol/L 135-148 CHLORIDE 108 mmol/L 98-110 CARBON DIOXIDE 20 mmol/L 21-32 Microbiology CBC - 12/25/14 13:21 MEAN CELL HGB 30.6 pg 27.0-33.0 MEAN CELL HGB CONCENTRATION 32.8 g/dL 32.0-37.0 MEAN CELL VOLUME 93.3 fl 80.0-100.0 RED BLOOD CELL 3.86 m/cumm 4.00-6.00 RED CELL DISTRIBUTION WIDTH 14.6 % 11.0- 15.6 WHITE BLOOD CELL 14.7 k/cumm 5.0-10.0 HEMOGLOBIN 11.8 gm/dL 12.0-16.0 HEMATOCRIT 36.0 % 37.0-47.0 PLATELET COUNT 218 k/cumm 150-400 Microbiology CORD VENOUS BLOOD GAS - 12/25/14 17:20 VENOUS CORD BLOOD BASE EXCESS -4.3 meq/L -5.8-0.7 COMMENT VENOUS VENOUS CORD BLOOD HCO3 21.0 meq/L 17.4- 25.4 VENOUS CORD BLOOD PCO2 39 mm Hg 28-57 VENOUS CORD BLOOD PH 7.34 7.23-7.46 VENOUS CORD BLOOD PO2 32 mm Hg 15-42 VENOUS CORD BLOOD O2 SAT 58 % 14-75 Microbiology CORD ARTERIAL BLOOD GAS - 12/25/14 17:20 ARTERIAL CORD BLD BASE EXCESS -2.7 meq/L -7.6-1.3 COMMENT ARTERIAL ARTERIAL CORD BICARBONATE 25.0 meq/L 16.0 -27.1 ARTERIAL CORD BLOOD PCO2 56 mm Hg 32-69 ARTERIAL CORD BLOOD PH 7.27 7.14-7.40 ARTERIAL CORD BLOOD PO2 18.7 mm Hg 8-33 ARTERIAL CORD BLOOD O2 SAT 27 % 5-59 Microbiology HEMOGLOBIN - 12/25/14 20:54 MEAN CELL VOLUME 94.3 fl 80.0-100.0 HEMOGLOBIN 10.8 gm/dL 12.0-16.0 Microbiology HEMOGLOBIN - 12/26/14 05:53 MEAN CELL VOLUME 94.4 fl 80.0-100.0 HEMOGLOBIN 10.0 gm/dL 12.0-16.0 Microbiology URINALYSIS, ROUTINE - 09/27/15 20:38 UA LEUKOCYTE ESTERASE DIPSTICK 1+ NEGATIVE UA NITRITE DIPSTICK NEGATIVE NEGATIVE UA PROTEIN DIPSTICK TRACE NEGATIVE UA GLUCOSE DIPSTICK NEGATIVE NEGATIVE UA KETONE DIPSTICK NEGATIVE NEGATIVE UA UROBILINOGEN DIPSTICK NORMAL NORMAL UA BILIRUBIN DIPSTICK NEGATIVE NEGATIVE UA BLOOD DIPSTICK 3+ NEGATIVE UA SPECIFIC GRAVITY 1.010 1.015-1.025 UR PH 5.5 5.0-7.0 UA MICROSCOPIC - 09/27/15 20:38 UA BACTERIA 2+ NEGATIVE UA EPITHELIAL CELLS 2+ epi/hpf 0 - 1+ UA MUCUS 1+ NEG TO 1+ UA RBC 5-10 rbc/hpf 0 - 3 UA VOLUME FOR EXAM 12.0 mL (12mL STD) UA WBC 2-5 wbc/hpf 0 - 5 UR TEST - 09/27/15 20:39 UR TEST NEGATIVE NEGATIVE CBC W/DIFF - 09/27/15 21:11 EOSINOPHIL # 0.2 k/cumm 0.1-0.5 EOSINOPHIL % 2 % 2-4 GRANULOCYTE # 3.2 k/cumm 2.0-9.0 GRANULOCYTE % 44 % 50-75 LYMPHOCYTE # 3.4 k/cumm 1.0-4.0 LYMPHOCYTE % 46 % 20-30 MEAN CELL HGB 29.4 pg 27.0-33.0 MEAN CELL HGB CONCENTRATION 32.9 g/dL 32.0-37.0 MEAN CELL VOLUME 89.4 fl 80.0-100.0 MONOCYTE # 0.6 k/cumm 0.1-1.0 MONOCYTE % 8 % 4-6 RED BLOOD CELL 3.88 m/cumm 4.00-6.00 RED CELL DISTRIBUTION WIDTH 14.6 % 11.0- 15.6 WHITE BLOOD CELL 7.4 k/cumm 5.0-10.0 HEMOGLOBIN 11.4 gm/dL 12.0-16.0 HEMATOCRIT 34.7 % 37.0-47.0 PLATELET COUNT 231 k/cumm 150-400 CHEM/HEM PROFILE-BEDSIDE - 09/27/15 21:17 POTASSIUM 3.6 mmol/L 3.5-5.3 METHOD Bedside ANION GAP 15 mmol/L 10-20 METHOD Bedside GLUCOSE 92 mg/dL 70-99 BLOOD UREA NITROGEN 4 mg/dL 7-20 CREATININE 0.8 mg/dL 0.6-1.0 HEMOGLOBIN 10.9 gm/dL 12.0-16.0 HEMATOCRIT 32.0 % 37.0-47.0 SODIUM 139 mmol/L 135-148 CHLORIDE 105 mmol/L 98-110 CARBON DIOXIDE 23 mmol/L 21-32 CALCIUM IONIZED 4.9 mg/dL 4.5-5.3 Encounters ACCT No. Visit Date/Time Discharge Status Pt. Type Provider Facility Loc./Unit Complaint [id number] 05/21/2013 13:57:00 2013 11:23:00 DIS Outpatient [place] ACEVEDO, Familia Solomon [facility] on [address]
--- OUTSIDE RECORDS SUMMARY | 2016-06-29 19:58 | XMS REPORT | Continuity of Care Document ---
Author Author [facility] Organization [facility] Address Unknown Phone Unavailable Support Name Relationship Address Phone DONIS MCKEON MD Caregiver [facility] [address] [address] Unavailable JUDY FERGUSON MD Caregiver [address] [place] [address] OTHER Caregiver Unknown [phone] DANIAL MARTIN Next Of Kin [address] [place] [address] Insurance Providers Payer Name Policy Number Subscriber Name Relationship [facility] [id number] Danial Martin 01 Spouse Problems Medical Problems Problem Onset Date Status Abdominal pain Unknown Active Abdominal pain Unknown Active Pain, dental Unknown Active Medications Medication Dose Route Sig Days/Qty Instructions Order Date Discontinued Date Status Cefprozil 250 Mg PO TWICE A DAY 03/23/08 01/07/09 Discontinued Albuterol Sulfate 1 INH NEEDED 06/04/12 Active Naproxen 500 Mg PO TWICE A DAY PRN PAIN 20 Qty take with food 08/12/13 Active Cephalexin 500 Mg PO THREE TIMES A DAY 30 Qty 02/19/14 Active Hydrocodone/Apap 7.5/325 Mg 0.5-2 Tab PO Every 6 Hours PRN PAIN 30 Qty 02/19/14 Active Social History Social History Problem Response Recorded Date/Time Smoking Status Unknown if ever smoked 08/12/2013 12:34am Chewing Tobacco Status No 08/12/2013 12:34am Hx Substance Use No 02/19/2014 1:25am Hx Alcohol Use No 02/19/2014 1:25am Has the pt used tobacco in the last 12 months No 12/16/2012 1:16pm Query Response Start Date Stop Date Smoking Status Unknown if ever smoked Hospital Discharge Instructions No hospital discharge instructions. Plan of Care No plan of care. Functional Status Query Response Date Recorded Physical Hygiene Self February 19, 2014 1:25am Disabilities None February 19, 2014 1:25am Devices Used None February 19, 2014 1:25am Dressing Self February 19, 2014 1:25am Ambulation Self February 19, 2014 1:25am Diet Self February 19, 2014 1:25am Mental Status Alert February 19, 2014 2:04am Disabilities None February 19, 2014 1:25am Devices Used None February 19, 2014 1:25am Physical Hygiene Self February 19, 2014 1:25am Dressing Self February 19, 2014 1:25am Ambulation Self February 19, 2014 1:25am Diet Self February 19, 2014 1:25am Allergies, Adverse Reactions, Alerts Allergen Type Severity Reaction Status Last Updated Penicillin Allergy Unknown NUMBNESS Active 02/19/14 Immunizations Name Given Type Hx Influenza Vaccination No Historical Hx Pneumococcal Vaccination No Historical Hx Influenza Vaccination No Historical Hx Tetanus Diptheria Y 2007 Historical Vital Signs Acute Vital Signs Vital Response Date/Time Temperature (Fahrenheit) 98.5 deg F (96.8 - 99.1) Temperature (Calculated Celsius) 36.33405 degrees C (36.0 - 37.3) Pulse Rate (adult) 89 bpm (60 - 100) Respiratory Rate 18 breaths/min (10 - 20) O2 Sat by Pulse Oximetry 97 % (90 - 100) Blood Pressure 117/75 mm Hg Height (Feet) 5 feet Height (Inches) 7.00 inches Weight (Kilograms) 95.4 kg Body Mass Index (BMI) 32.0 Results Test Source Date Result Interp. Ref. [...] 17 RATIO N 6-26 Basophils # (Auto) August 12, 2013 1:05am 0.0 T/MM3 N 0-0.2 Basophils (%) (Auto) August 12, 2013 1:05am 0.4 % N 0-2 Blood Urea Nitrogen August 12, 2013 1:05am 10.0 MG/DL N 7-17 Calcium Level August 12, 2013 1:05am 9.1 MG/DL N 8.4-10.2 Calculated Osmolality August 12, 2013 1:05am 268 MOSM/KG N 261-280 Carbon Dioxide Level August 12, 2013 1:05am 26 MEQ/L N 22-30 Chloride Level August 12, 2013 1:05am 104 MEQ/L N 98-107 Creatinine August 12, 2013 1:05am 0.6 MG/DL L 0.7-1.2 Eosinophils # (Auto) August 12, 2013 1:05am 0.1 T/MM3 N 0-0.5 Eosinophils (%) (Auto) August 12, 2013 1:05am 1.3 % N 0-4 Globulin August 12, 2013 1:05am 3.5 G/DL N 2.4-3.6 Glucose Level August 12, 2013 1:05am 90 MG/DL N 65-110 Hematocrit August 12, 2013 1:05am 36.2 % N 36-46 Hemoglobin August 12, 2013 1:05am 11.8 GM/DL L 12-16 Influenza Type A Antigen January 07, 2009 3:32pm Negative - Influenza Type B Antigen January 07, 2009 3:32pm Negative - Lymphocytes # (Auto) August 12, 2013 1:05am 3.7 T/MM3 N 1-4.8 Lymphocytes (%) (Auto) August 12, 2013 1:05am 44.1 % N 23-45 Mean Corpuscular Hemoglobin August 12, 2013 1:05am 29.4 UUG N 26-34 Mean Corpuscular Hemoglobin Concent August 12, 2013 1:05am 32.6 GM/DL N 31- 37 Mean Corpuscular Volume August 12, 2013 1:05am 90.3 UM3 N 80-100 Mean Platelet Volume August 12, 2013 1:05am 10.9 UM3 N 9.4-12.4 Monocytes # (Auto) August 12, 2013 1:05am 0.6 T/MM3 N 0-0.8 Monocytes (%) (Auto) August 12, 2013 1:05am 6.7 % N 0-9.0 Monoscreen March 23, 2008 8:05am Negative - Neutrophils # (Auto) August 12, 2013 1:05am 4.0 T/MM3 N 1.8-7.7 Neutrophils (%) (Auto) August 12, 2013 1:05am 47.4 % N 33-66 Platelet Count August 12, 2013 1:05am 233 T/MM3 N 130-400 Potassium Level August 12, 2013 1:05am 3.5 MEQ/L L 3.6-5 RDW Standard Deviation August 12, 2013 1:05am 43.6 FL N 36.9-50.2 Red Blood Count August 12, 2013 1:05am 4.01 M/MM3 N 4.00-5.20 Sodium Level August 12, 2013 1:05am 140 MEQ/L N 134-144 Total Bilirubin August 12, 2013 1:05am 0.70 MG/DL N 0.20-1.30 Total Protein August 12, 2013 1:05am 7.6 G/DL N 6.3-8.2 Urine Amorphous Urates December 27, 2007 11:47am [...] specimen been collected /obtained? Y Urine Specific [place] August 12, 2013 1:15am >=1.030 H - [...] been collected/ obtained? Y White Blood Count August 12, 2013 1:05am 8.5 T/MM3 N 4.5-11.0 Chemistry Specimen Hemolysis August 12, 2013 1:05am [...] can falsely decrease Phenytoin. Recommend specimen recollection. Urinalysis Comment June 04, 2012 2:20pm Microscopic not ind. - Has specimen been collected/obtained? Y Lab Scanned Report January 09, 2012 9:00pm LAB TEST FORM REQUEST [id number] - Turbidity August 12, 2013 1:05am < 20 0-20 Glomerular Filtration Rate Calc August 12, 2013 1:05am 124 - Immature Granulocyte # (Auto) August 12, 2013 1:05am 0.01 T/MM3 N 0.00- 0.03 Immature Granulocyte % (Auto) August 12, 2013 1:05am 0.1 % N 0.0-0.5 Icterus Index August 12, 2013 1:05am < 2 0-7 Wet Prep Vagina December 30, 2011 12:00pm Urine Culture Urine, Clean Catch Voided June 04, 2012 2:42pm Gram Positive Dayo Procedures No known history of procedures. Encounters Encounter Location Date/Time Departed Emergency Room [facility] 02/19/14 1:10am Recent Diagnosis
[2016-06-29 20:22] VITALS: Ht 170.2 cm; Wt 87.8 kg
[2016-06-29 20:47] LABS: BLOOD, URINE NEGATIVE (NEGATIVE); COLOR,URINE YELLOW (YELLOW); LEUKOCYTE ESTERASE ,URINE TRACE (NEGATIVE); NITRITE,URINE NEGATIVE (NEGATIVE); UROBILINOGEN,URINE 0.2 EU/DL (NORMAL)
--- NOTE | 2016-06-29 20:57 | NUR ---
PT TO IMAGING
--- NOTE | 2016-06-29 21:10 | NUR ---
IMAGING PT RETURN TO LOBBY FROM IMAGING AT THIS TIME.
--- NOTE | 2016-06-29 22:02 | ERPDOC ---
Departure Disposition Decision Date: Jun 29, 2016 Disposition Decision Time: 22:19 Disposition: 01 DISCHARGED HOME, SELF-CARE Impression Impression Impression: Primary Impression: Sacral fracture, closed Encounter type: initial encounter Zone of sacrum fracture: zone III of sacrum Fracture alignment: nondisplaced Qualified Codes: S32.130A - Nondisplaced zone iii fracture of sacrum, initial encounter for closed fracture Severity: Severe Condition: Improved Seen By: Physician only Referrals: NAUN IBANEZ 1 Week [facility] Patient Instructions: Sacral Fracture (ED) Problems/Meds/Labs Reviewed?: Yes Medications reviewed and manag: Yes Additional Instructions: You have a sacral fracture, based on your physical exam. Take the norco as needed for pain; take miralax while taking the norco. Use a 'donut' when sitting and be careful with standing/sitting. Take the zofran as needed for nausea. Follow up with your PCM for further pain control and follow up. She can refer to a spinal surgeon if needed. Departure Forms: Return to Work/School Permit Follow up care ordered?: Yes Mental Status: Alert, Oriented Scripts Ondansetron (Zofran Odt) 4 Mg Tab.rapdis 4 MG PO QID Y for NAUSEA &/OR VOMITING, #20 TAB 0 Refills Prov: JULYJUAN A DO 06/29/16 Hydrocodone/Acetaminophen ([place] 5-325 Tablet) 5-325 Tablet 1 TAB PO Q6HR Y for PAIN, #20 TAB 0 Refills Prov: JULYJUAN A DO 06/29/16 HPI - Back Pain General Chief Complaint: Low Back Pain or Injury Stated Complaint: FALL,PAIN TAILBONE AREA Time Seen by Provider: 22:01 Source: patient Exam Limitations: no limitations HPI - Back Pain Initial Comments 25yo woman presents tonight with sacral pain. Pt was drinking last night and fell on concrete. Ever since, she has had pain in her gluteal cleft. Worse with sitting or standing; better with lying on her side. Occurred At: home Onset/Timing: Rapid Duration: 12-24 hrs Pain/Severity Scale: Now & Worst: 8/10 Severity/Quality: severe Location: coccyx Method of Injury/Context: fell Modifying Factors: IMPROVES WITH: cold therapy, immobilization, pain medication , WORSE WITH: jarring, movement Associated Sypmtoms: DENIES: fever, loss of bladder control, loss of bowel control, lower back pain, muscle spasms, numbness in legs/feet, sensory/motor loss, tingling in legs/feet, weakness Hx of Similar Symptoms: No Allergies: Coded Allergies: Penicillins (Verified Allergy, Unknown, NUMBNESS, 06/29/16) Past History Past Medical History Respiratory: asthma GI: constipation Neurological: migraines Integumentary: eczema Hematologic: anemia Psychological: anxiety Surgical History General: gallbladder Reproductive/: , tubal ligation Family History Family PMH: FOUND: asthma, cancer, diabetes, hypertension, hypothyroidsim Vaccines Hx Influenza Vaccination: No Hx Pneumococcal Vaccination: No Hx Tetanus Diptheria: Yes (2006) Social History Household Members: significant other Review of Systems Musculoskeletal General: pain, see HPI All other Systems All Other Systems: Reviewed and Negative Physical Exam General General Nourishment: well nourished, well developed, appears stated age, no acute distress, adult, obese Vitals and Pain First Documented Vital Signs Date Time Temp Pulse Resp B/P Pulse Ox O2 Delivery O2 Flow Rate FiO2 06/29/16 20:22 98.4 71 16 115/70 100 Room Air Weight: Kilograms: 87.800 Height (feet): 5 Height (inches): 7.00 Triage Pain Scale: Musculoskeletal (brief) Musculoskeletal Brief: FOUND: spasm, tenderness (Exquisitely TTP over distal tip of sacrum with light palpation), NOT FOUND: deformity, loss of motion Integumentary (brief) Comments Abrasions over pts knees and right cheek. Supervisory Exam Body Habitus: well groomed Head: atraumatic Eyes: PERRL Nares: no exudate Neck: trachea midline Chest: symmetric Abdomen: non-distended Neurological: no abnormal movements Psychological: alert, appropriate Differential Diagnoses Considering: Disc Herniation, Compression Fracture, Fracture, Lumbar Sprain, Lumbar Strain, Other (hip fx, coccygeal fx) Progress Results/Orders Orders Procedure Category Date Status Time Pelvis Minimum 3 View RAD 06/29/16 Resulted Ua, Dip Wreflex LAB 06/29/16 Complete Microsc & Drywall Finisher 19:59 LAB 06/29/16 Complete Qualitative, Urine 19:59 Hydrocodone/Acetaminophen PHA 06/29/16 Complete ([place] 5/325) 22:15 Ondansetron Odt PHA 06/29/16 Complete (Zofran Odt) 22:15 Hydrocodone/Apap PHA 06/29/16 Complete 5/325 Prepack ([place] 5 22:30 Ondansetron Odt PHA 06/29/16 Complete (Prepack) (Zofran Odt 22:30 Lab Results Laboratory Tests Test 06/29/16 20:32 Urine Collection Type Cleancatch-midstream Urine Color Yellow Urine Turbidity Sl cloudy Urine pH 6.0 Urine Specific [place] 1.025 Urine Protein Negative Urine Glucose (UA) Negative Urine Ketones Trace Urine Blood Negative Urine Nitrite Negative Urine Bilirubin Negative Urine Urobilinogen 0.2EU/DL Urine Leukocyte Esterase Trace Urinalysis Comment Microscopic not ind. Urine Test Negative Medications Current ED Medications Acetaminophen/ Hydrocodone Bitart ([place] 5/325) 1 tab O ONCE PO Last administered on 06/29/16 22:25; Start 06/29/16 at 22:15; Stop 06/29/16 at 22:16; Status DC Ondansetron HCl (Zofran Odt) 4 mg O ONCE PO Last administered on 06/29/16 22: 25; Start 06/29/16 at 22:15; Stop 06/29/16 at 22:16; Status DC Acetaminophen/ Hydrocodone Bitart (NORCO 5 (PrePack)) 1 pack O ONCE SENT HOME ; Start 06/29/16 at 22:30; Stop 06/29/16 at 22:31; Status DC Ondansetron HCl (ZOFRAN ODT (PrePack)) 1 pack O ONCE SENT HOME ; Start 06/29/16 at 22:30; Stop 06/29/16 at 22:31; Status DC Progress Progress Pt with clinical and likely radiographic evidence of distal sacral vs coccygeal fx. Discussed dx, prognosis, tx, and f/u with pt who voiced understanding. F/u with PCM for ongoing eval and referral to engineering technical specialist if required. Consult/PCP Consult/PCP : Physician Contacted: Dr. Apodaca Time Called: 21:55 Time of first response: 21:57 Type of discussion: Phone Consult/PCP Discussion Details Possible distal sacral vs unfused sacral/coccygeal segment. Pain control, conservative measures. F/u with PCM as outpt for spine referral if sx persist. Xray Xray : Xray: Pelvis Interpretation: Abnormal (Possible, distal transvers sacral fx.), Interpreted by JUAN A Yanez DO Jun 29, 2016 22:02
--- NOTE | 2016-06-29 22:10 | DI ---
Indication: ITS.REASON: Fall; pain PROCEDURE: PELVIS MINIMUM 3 VIEW: Encounter: Initial Comparison: None Findings: No acute fracture or dislocation seen. Hip joint spaces and sacroiliac joints are maintained. Impression: No acute fracture seen. .
[2016-06-29] MEDS ORDERED: HYDROCODONE/APAP 5 mg/325 mg TABLET PO ONE (22:15)
[2016-06-29] MEDS ORDERED: ONDANSETRON ODT 4 MG TAB PO ONE (22:15)
--- OUTSIDE RECORDS SUMMARY | 2016-06-29 22:20 | XMS REPORT | Continuity of Care Document ---
Author Author [facility] Organization [facility] Address Unknown Phone Unavailable Support Name Relationship Address Phone JUDY FERGUSON MD Caregiver [address] [place] [id number] MANSOOR MYERS APRN Caregiver [facility] Unknown [phone] MIKA JACKSON MD Caregiver [facility] [address] , KAREN Mayo [place], [place] [phone] DANIAL HAYES Next Of Kin [address] [place], [place] [id number] Insurance Providers Payer Name Policy Number Subscriber Name Relationship [facility] Preferred [id number] Danial Hayes 01 Spouse Advance Directives Directive [...] F (96.8 - 99.1) Temperature (Calculated Celsius) 35.27722 degrees C (36.0 - 37.3) Temperature Source [...] 09, 2012 9:00pm LAB TEST FORM REQUEST [id number] - Lymphocytes # (Auto) April 20, 2014 [...] specimen been collected /obtained? Y Urine Specific [place] August 12, 2013 1:15am >=1.030 H - [...] completed 02/19/14 EMERGENCY DEPT VISIT completed 02/19/14 [id number]"INJECTION, HYDROMORPHONE, UP TO 4 MG" completed 02/19/14 Robot-assisted repair of ventral hernia completed 04/20/14 MIKA JACKSON MD Encounters Encounter Location Date/Time Departed Emergency Room [facility] 02/19/14 1:10am
--- OUTSIDE RECORDS SUMMARY | 2016-06-29 22:21 | XMS REPORT | Continuity of Care Document ---
Author Author [facility] Organization [facility] Address Unknown Phone Unavailable Support Name Relationship Address Phone DONIS MCKEON MD Caregiver [facility] [address] [place] [address] Unavailable JUDY FERGUSON MD Caregiver [address] [place] [address] OTHER Caregiver Unknown [phone] DANIAL MARTIN Next Of Kin [address] [place] [address] Insurance Providers Payer Name Policy Number Subscriber Name Relationship [facility] [id number] Danial Martin 01 Spouse Problems Medical Problems [...] F (96.8 - 99.1) Temperature (Calculated Celsius) 36.74076 degrees C (36.0 - 37.3) Pulse Rate [...] specimen been collected /obtained? Y Urine Specific [place] August 12, 2013 1:15am >=1.030 H - [...] 09, 2012 9:00pm LAB TEST FORM REQUEST [id number] - Turbidity August 12, 2013 1:05am < [...] Encounters Encounter Location Date/Time Departed Emergency Room [facility] 02/19/14 1:10am Recent Diagnosis
--- OUTSIDE RECORDS SUMMARY | 2016-06-29 22:21 | XMS REPORT | Continuity of Care Document ---
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 Type Provider Facility Loc./Unit Complaint [id number] 05/21/2013 13:57:00 2013 11:23:00 DIS Outpatient [place] [facility], Familia [facility] on [address]
[2016-06-29] MEDS ORDERED: HYDR-4246 PO (22:25)
[2016-06-29] MEDS ORDERED: ONDA4TAB7 PO (22:25)
[2016-06-29] MEDS ORDERED: HYDROCODONE/APAP 5/325 (PrePack) SENT HOME ONE (22:30)
[2016-06-29] MEDS ORDERED: ONDANSETRON ODT 4mg #3 (PrePack) SENT HOME ONE (22:30)
[2016-06-29 22:44] VITALS: BP 103/58; PULSE 68; RESP 16; TEMP 98.4; O2SAT 100
--- NOTE | 2016-06-29 22:44 | NUR ---
DEPART PT GIVEN DI FOR SACRAL FRACTURE, ZOFRAN, NORCO, F/U. RX/PREPAK PROVIDED FOR NORCO AND ZOFRAN. PT VERBALIZES UNDERSTANDING OF ALL DI. QUESTIONS ASKED/ANSWERED - DENIES FURTHER QUESTIONS/NEEDS AT THIS TIME. PERSONAL BELONGING GATHERED. PT AMBULATED/ESCORTED TO ED EXIT - GAIT STABLE, NO SIGN OF DISTRESS.
== END 2016-06-29 22:44 | disposition home or self-care (01) ==
LOC: ED 19:50
DX: S32.130A Nondisplaced Zone III fracture of sacrum, initial encounter for closed fracture (principal); W19.XXXA Unspecified fall, initial encounter; Y93.89 Activity, other specified; Y92.009 Unspecified place in unspecified non-institutional (private) residence as the place of occurrence of the external cause; Y99.8 Other external cause status
CPT/HCPCS: 81003; 81025

== ENCOUNTER → 2016-07-07 | Outpatient (CLI) | payer MEDICAID ==
[~2016-07-07] MED LIST changes: +HYDR-4246 PO; +ONDA4TAB7 PO
--- NOTE | 2016-07-07 17:22 | DI ---
EXAM: CT PELVIS W/O CONTRAST LOCATION OF DICTATION: [place] HISTORY: ITS.REASON: S32.130D CLOSED FX SACRUM; M54.5 LOW BACK PAIN COMPARISON: No prior studies available for comparison. TECHNIQUE: Multiple contiguous axial images were obtained of the pelvis without contrast. Coronal and sagittal reformatted images were utilized. FINDINGS: There is significant sclerosis about the bilateral SI joints suggestive of sacroiliitis. There is a transverse lucency noted within the anterior aspect of the right sacral ala suggestive of acute nondisplaced fracture. Nonspecific transverse lucencies noted within both ilium extending to the SI joints may reflect changes associated with sacroiliitis. Fracture deformities are considered less likely. There is spondylolysis at the L4 level without significant spondylolisthesis. Bilateral hip joints are within normal limits. Mild osteitis pubis noted. Impression 1. Subtle acute nondisplaced fracture suggested along the anterior aspect of the right sacral ala. 2. Transverse lucencies within both sclerotic right and left ilium extending to the SI joints may reflect changes secondary to sacroiliitis. Acute fractures are considered less likely. 3. 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 .
== END ==
LOC: IMA 15:52
PROVIDERS: ATTEND Registered Nurse
DX: M53.3 Sacrococcygeal disorders, not elsewhere classified (principal); R93.8 Abnormal findings on diagnostic imaging of other specified body structures; Z91.81 History of falling; M43.06 Spondylolysis, lumbar region; M54.5 Low back pain